=== PATIENT | female | born 1995 | race Caucasian/White ===

== ENCOUNTER → 2019-06-03 | Outpatient (CLI) | payer OTHER | END | disposition home or self-care (01) | LOC: LABWHC1 11:08 | PROVIDERS: ATTEND Otolaryngology | DX: J30.89 Other allergic rhinitis (principal) | CPT/HCPCS: 36415; 86001 ==

== ENCOUNTER → 2019-06-08 | Outpatient (CLI) | payer OTHER | END | disposition home or self-care (01) | LOC: NEUROMAIN 08:41 | PROVIDERS: ATTEND Otolaryngology | DX: H81.8X3 Other disorders of vestibular function, bilateral (principal) | CPT/HCPCS: 92537; 92540 ==

== ENCOUNTER 2019-06-18 22:14 | Emergency (ER) | payer OTHER ==
[2019-06-18 22:20] VITALS: RESP 18; TEMP 98.3
[2019-06-18 23:15] VITALS: BP 123/93; PULSE 87
[2019-06-18 23:15] LABS: Appearance,Urine Clear (Clear); Bilirubin,Urine Negative (Negative); Blood,Urine Negative (Negative); Color,Urine Light Yellow; Glucose,Urine (UA) Negative (Negative); Ketones,Urine Negative (Negative); Leukocyte Esterase,Urine Negative (Negative); Nitrite,Urine Negative (Negative); PH, Urine 7.5 (5.0-8.0); Protein,Urine Negative (Negative); Specific Gravity,Urine 1.005 (1.001-1.035); Urobilinogen,Urine <2.0 mg/dL (<2.0)
--- NOTE | 2019-06-18 23:30 | XR ---
EXAMINATION TYPE: XR chest 2V DATE OF EXAM: 06/18/2019 COMPARISON: NONE HISTORY: Headache TECHNIQUE: Frontal and lateral views of the chest are obtained. FINDINGS: Heart and mediastinum are normal. Lungs are clear. Diaphragm is normal. Bony thorax appear s normal. IMPRESSION: Normal chest.
--- NOTE | 2019-06-18 23:31 | CT ---
EXAMINATION TYPE: CT brain wo con DATE OF EXAM: 06/18/2019 COMPARISON: None HISTORY: 1233.40 CT DLP: dizziness, sinus pressure mGycm. Automated Exposure Control for Dose Reduction was Utilized. TECHNIQUE: CT scan of the head is performed without contrast. FINDINGS: Ventricles and sulci appear normal. There is no mass effect nor midline shift. There is no sign of intracranial hemorrhage. Calvarium is intact. IMPRESSION: Normal head CT scan.
--- NOTE | 2019-06-18 23:53 | ED ---
General Adult HPI - General Chief complaint: Upper Respiratory Infection Stated complaint: Headache,dizziness Time Seen by Provider: 06/18/19 22:23 Source: patient, RN notes reviewed, old records reviewed Mode of arrival: ambulatory Limitations: no limitations - History of Present Illness Initial comments: 24-year-old female patient with no pertinent past history presents to ED with multiple complaints. Patient chief complaint is approximately 6 months of waxing and waning headaches. Patient reports that they are located in the frontal as well as apex of her skull. Reports that she does occasionally wake up with headaches in the morning. Patient was that she has had episodes of nausea and vomiting. Denies this being on a daily basis. Patient has secondary complaint of recurrent sinus congestion and pressure. Reports that she is following with ENT for this. There are complaint the patient reports that she has had approximately 5 days of waxing and waning cough. Denies any other complaints at this time. Systemic: Pt denies fatigue, fever/chills, rash. Pt denies weakness, night sweats, weight loss. Neuro: Pt denies visual disturbances, syncope or pre-syncope. HEENT: Pt denies ocular discharge or irritation, otalgia, rhinorrhea, pharyngitis or notable lymphadenopathy. Cardiopulmonary: Pt denies chest pain, SOB, heart palpitations, dyspnea on exertion. Abdominal/GI: Pt denies abdominal pain, n/v/d. : Pt denies dysuria, burning w/ urination, frequency/urgency. Denies new onset urinary or bowel incontinence. MSK: Pt denies myalgia, loss of strength or function in extremities. Neuro: Pt denies new onset weakness, paresthesias. - Related Data Allergies Allergy/AdvReac Type Severity Reaction Status Date / Time ketorolac [From Toradol] Allergy Unknown Verified 06/18/19 22:21 Review of Systems ROS Statement: Those systems with pertinent positive or pertinent negative responses have been documented in the HPI. ROS Other: All systems not noted in ROS Statement are negative. Past Medical History Past Medical History: No Reported History Additional Past Medical History / Comment(s): allergies, dizziness History of Any Multi-Drug Resistant Organisms: None Reported Past Surgical History: No Surgical Hx Reported Past Psychological History: No Psychological Hx Reported Smoking Status: Never smoker Past Alcohol Use History: Occasional Past Drug Use History: None Reported General Exam - General Exam Comments Initial Comments: Constitutional: NAD, AOX3, Pt has pleasant affect. HEENT: NC/AT, trachea midline, neck supple, no lymphadenopathy. Posterior pharynx non erythematous, without exudates. External ears appear normal, without discharge. Mucous membranes moist. Eyes PERRLA, EOM intact. There is no scleral icterus. No pallor noted. Cardiopulmonary: RRR, no murmurs, rubs or gallops, no JVD noted. Lungs CTAB in anterior and posterior melissa. No peripheral edema. Abdominal exam: Abdomen soft and non-distended. Abdomen non-tender to palpation in all 4 quadrants. Bowel sounds active in LLQ. No hepatosplenomegaly. No ecchymosis Neuro: CN II-XII intact. No nuchal rigidity. No raccon eyes, no mercado sign, no hemotympanum. No cervical spinal tenderness. MSK: No posterior calf tenderness bilaterally, homans sign negative bilaterally. Posterior tibialis and radial pulse +2 bilaterally. Sensation intact in upper and lower extremities. Full active ROM in upper and lower extremities, 5/5 stregnth. Limitations: no limitations Course Vital Signs 06/18/19 06/18/19 06/18/19 22:17 22:39 23:08 Temperature 98.3 F Pulse Rate 89 87 Respiratory 18 18 18 Rate Blood Pressure 124/72 123/93 O2 Sat by Pulse 99 98 Oximetry Medical Decision Making - Medical Decision Making 24-year-old female patient with no pertinent past history presents to ED with multiple complaints. Patient chief complaint is approximately 6 months of waxing and waning headaches. Patient reports that they are located in the fr ontal as well as apex of her skull. Reports that she does occasionally wake up with headaches in the morning. Patient was that she has had episodes of nausea and vomiting. Denies this being on a daily basis. Patient has secondary complaint of recurrent sinus congestion and pressure. Reports that she is following with ENT for this. There are complaint the patient reports that she has had approximately 5 days of waxing and waning cough. Denies any other complaints at this time. Patient vital signs stable, afebrile. Physical examacute pathology. Neurologic exam within normal limits. CT brain densely acute pathology. Chest do not display acute pathology. Patient discharged with follow-up with ENT for further evaluation. Case discussed with Dr. Mijares. - Lab Data Lab Results 06/18/19 06/18/19 Range/Units 23:00 23:00 Urine Color Light Yellow Urine Appearance Clear (Clear) Urine pH 7.5 (5.0-8.0) Ur Specific [place] 1.005 (1.001-1.035) Urine Protein Negative (Negative) Urine Glucose (UA) Negative (Negative) Urine Ketones Negative (Negative) Urine Blood Negative (Negative) Urine Nitrite Negative (Negative) Urine Bilirubin Negative (Negative) Urine Urobilinogen <2.0 (<2.0) mg/dL Ur Leukocyte Esterase Negative (Negative) Urine HCG, Qual Not Detected (Not Detectd) Disposition Clinical Impression: Headache, Cough Disposition: HOME SELF-CARE Condition: Stable Instructions (If sedation given, give patient instructions): Acute Headache (ED) Additional Instructions: Patient to adhere to previously discussed treatment plan and will take medication(s) as directed. Patient to follow up with PCP in 1-2 days. Patient to return to ED if symptoms do not improve. Follow-up with ENT tomorrow. Return to ER if condition worsens. Is patient prescribed a controlled substance at d/c from ED?: No Referrals: None,Stated [Primary Care Provider] - 1-2 days
--- NOTE | 2019-06-18 23:56 | ED ---
Medical Decision Making - Lab Data Lab Results 06/18/19 06/18/19 Range/Units 23:00 23:00 Urine Color Light Yellow Urine Appearance Clear (Clear) Urine pH 7.5 (5.0-8.0) Ur Specific [place] 1.005 (1.001-1.035) Urine Protein Negative (Negative) Urine Glucose (UA) Negative (Negative) Urine Ketones Negative (Negative) Urine Blood Negative (Negative) Urine Nitrite Negative (Negative) Urine Bilirubin Negative (Negative) Urine Urobilinogen <2.0 (<2.0) mg/dL Ur Leukocyte Esterase Negative (Negative) Urine HCG, Qual Not Detected (Not Detectd) Disposition Clinical Impression: Headache, Cough Disposition: HOME SELF-CARE Condition: Stable Instructions (If sedation given, give patient instructions): Acute Headache (ED) Additional Instructions: Patient to adhere to previously discussed treatment plan and will take medication(s) as directed. Patient to follow up with PCP in 1-2 days. Patient to return to ED if symptoms do not improve. Follow-up with ENT tomorrow. Return to ER if condition worsens. Is patient prescribed a controlled substance at d/c from ED?: No Referrals: None,Stated [Primary Care Provider] - 1-2 days [facility] [NON[facility]FF] - 1-2 days
== END 2019-06-19 00:07 | disposition home or self-care (01) ==
LOC: EC 22:14
DX: R51 Headache (principal); R05 Cough; R11.2 Nausea with vomiting, unspecified; R09.81 Nasal congestion; R42 Dizziness and giddiness; Z88.6 Allergy status to analgesic agent
CPT/HCPCS: 70450; 71046; 81003; 81025; 99285

== ENCOUNTER → 2019-07-08 | Outpatient (CLI) | payer OTHER ==
--- NOTE | 2019-07-09 10:49 | CT ---
EXAMINATION TYPE: CT sinus wo con DATE OF EXAM: 07/08/2019 COMPARISON: None HISTORY: Chronic sinusitis, vertigo, headaches. CT DLP: 448.[address] of the paranasal sinuses was performed in the axial and coronal planes. Bone and soft tissue settings are submitted. The paranasal sinuses demonstrate normal aeration and development. The paranasal sinuses are free of mucosal thickening or air fluid level. The osteal meatal units are patent bilaterally. The nasal septum is midline. No bony destructive changes are seen within the field of view. IMPRESSION: Normal unenhanced CT of the paranasal sinuses.
== END | disposition home or self-care (01) ==
LOC: RADCTMAIN 15:21
PROVIDERS: ATTEND Otolaryngology
DX: J32.9 Chronic sinusitis, unspecified (principal)
CPT/HCPCS: 70486

== ENCOUNTER 2019-08-02 21:21 | Emergency (ER) | payer OTHER ==
[2019-08-02 21:38] LABS: Appearance,Urine Clear (Clear); Bilirubin,Urine Negative (Negative); Blood,Urine Negative (Negative); Color,Urine Light Yellow; Glucose,Urine (UA) Negative (Negative); Ketones,Urine Negative (Negative); Leukocyte Esterase,Urine Negative (Negative); Nitrite,Urine Negative (Negative); PH, Urine 7.5 (5.0-8.0); Protein,Urine Negative (Negative); Specific Gravity,Urine 1.011 (1.001-1.035); Urobilinogen,Urine <2.0 mg/dL (<2.0)
[2019-08-02] MEDS ORDERED: diphenhydrAMINE 50 MG/ML 1 ML VIAL IVP STA (22:06)
[2019-08-02] MEDS ORDERED: SODIUM CHLORIDE 0.9% 1,000 ML IV ONE (22:06)
[2019-08-02] MEDS ORDERED: METOCLOPRAMIDE 5 MG/ML 2 ML VIAL IVP STA (22:06)
[2019-08-02] MEDS ORDERED: DEXAMETHASONE SOD PHOSPHATE 10 MG/ML 1 ML VIAL IV STA (22:06)
[2019-08-02 22:42] LABS: Basophils % (A) 0 %; Eosinophils # (A) 0.1 k/uL (0-0.7); Eosinophils % (A) 1 %; HCT 42.4 % (34.0-46.0); HGB 14.4 gm/dL (11.4-16.0); Lymphocytes # (A) 1.3 k/uL (1.0-4.8); Lymphocytes % (A) 9 %; MCHC 33.8 g/dL (31.0-37.0); MCV 94.7 fL (80.0-100.0); Mean Platelet Volume 7.4; Monocytes # (A) 0.5 k/uL (0-1.0); Monocytes % (A) 4 %; Neutrophils # (A) 11.8 k/uL (1.3-7.7); Neutrophils % (A) 85 %; Platelet Count 253 k/uL (150-450); RBC 4.48 m/uL (3.80-5.40); RDW 11.5 % (11.5-15.5); WBC 13.8 k/uL (3.8-10.6)
[2019-08-02 22:45] LABS: ALT 23 U/L (9-52); AST 21 U/L (14-36); African American GFR (CKD) >90 (>60 ml/min/1.73 sqM); Alkaline Phosphatase 59 U/L (38-126); Anion Gap 10 mmol/L; Blood Urea Nitrogen 20 mg/dL (7-17); Calcium 9.5 mg/dL (8.4-10.2); Carbon Dioxide 24 mmol/L (22-30); Chloride 106 mmol/L (98-107); Glucose 126 mg/dL (74-99); Magnesium 2.1 mg/dL (1.6-2.3); Non-African American GFR(CKD) >90 (>60 ml/min/1.73 sqM); Potassium 3.8 mmol/L (3.5-5.1); Sodium 140 mmol/L (137-145); Total Bilirubin 0.4 mg/dL (0.2-1.3)
--- NOTE | 2019-08-02 23:43 | ED ---
General Adult HPI - General Chief complaint: Nausea/Vomiting/Diarrhea Stated complaint: Vomiting, shakiness Time Seen by Provider: 08/02/19 21:54 Source: patient Mode of arrival: ambulatory Limitations: no limitations - History of Present Illness Initial comments: 24-year-old female patient presents to the emergency department today for evaluation of headache. Patient states she's been having increasing frequency of headaches over the last several months. States this headache has been present for the last 5 days. States that times it will be less severe and at times more severe. States that generally he is always on the right side around her right eye her in her forehead. She denies any blurred or double vision with this. States today she is having some nausea but she generally does not have this symptom. States she does have some light sensitivity. Patient states that she has been taking Tylenol. States today she tried Excedrin Migraine. States that she did develop some shakiness and nausea after taking the medication. Denies any chance of . Denies any recent head injury. States she has seen her primary care physician who recommended hot packs and magnesium tablets. Patient denies any recent rash, fever, chills, shortness breath, chest pain, abdominal pain, diarrhea, constipation, back pain, numbness, tingling, dizziness, weakness, hematuria, dysuria, urinary urgency, urinary frequency, or any other complaints. - Related Data Allergies Allergy/AdvReac Type Severity Reaction Status Date / Time ketorolac [From Toradol] Allergy Unknown Verified 08/02/19 21:24 Review of Systems ROS Statement: Those systems with pertinent positive or pertinent negative responses have been documented in the HPI. ROS Other: All systems not noted in ROS Statement are negative. Past Medical History Past Medical History: No Reported History Additional Past Medical History / Comment(s): allergies, dizziness History of Any Multi-Drug Resistant Organisms: None Reported Past Surgical History: No Surgical Hx Reported Past Psychological History: No Psychological Hx Reported Smoking Status: Never smoker Past Alcohol Use History: Occasional Past Drug Use History: None Reported General Exam Limitations: no limitations General appearance: alert, in no apparent distress, other (This is a well- developed, well-nourished adult female patient in no acute distress. Vital signs upon presentation are temperature 98.1F, pulse 98, respirations 18, blood pressure 150/77, pulse ox 99% on room air.) Eye exam: Present: normal appearance, PERRL, EOMI. Absent: scleral icterus, conjunctival injection, periorbital swelling ENT exam: Present: normal exam, normal oropharynx, mucous membranes moist Respiratory exam: Present: normal lung sounds bilaterally. Absent: respiratory distress, wheezes, rales, rhonchi, stridor Cardiovascular Exam: Present: regular rate, normal rhythm, normal heart sounds. Absent: systolic murmur, diastolic murmur, rubs, gallop, clicks GI/Abdominal exam: Present: soft, normal bowel sounds. Absent: distended, tenderness, guarding, rebound, rigid Neurological exam: Present: alert, oriented X3, CN II-XII intact Expanded Speech: Present: fluid speech Cranial nerves: EOM's Intact: Normal, Nystagmus: Normal Cerebellar function: Finger to Nose: Normal Motor strength exam: RUE: 5, LUE: 5, RLE: 5, LLE: 5 Psychiatric exam: Present: normal affect, normal mood Skin exam: Present: warm, dry, intact, normal color. Absent: rash Course Vital Signs 08/02/19 08/03/19 21:22 00:11 Temperature 98.1 F 97.8 F Pulse Rate 98 52 L Respiratory 18 16 Rate Blood Pressure 150/77 102/59 O2 Sat by Pulse 99 99 Oximetry Medical Decision Making - Medical Decision Making 24-year-old female patient presents to the emergency department today for evaluation of headache, shaking, and nausea. Physical examination is unremarkable. She is neurologically intact with no focal deficits. Labs reviewed and are unremarkable. Patient was given some IV medications for headache, she does report improvement of symptoms. She'll be discharged to follow-up with her primary care physician, discuss referral to neurology, she is instructed to keep a headache diary. Return parameters were discussed in detail. She verbalizes understanding and agrees with this plan. - Lab Data Result diagrams: 08/02/19 22:25 08/02/19 22:25 Lab Results 08/02/19 08/02/19 08/02/19 Range/Units 21:26 21:26 22:25 WBC 13.8 H (3.8-10.6) k/uL RBC 4.48 (3.80-5.40) m/uL Hgb 14.4 (11.4-16.0) gm/dL Hct 42.4 (34.0-46.0) % MCV 94.7 (80.0-100.0) fL MCH 32.0 (25.0-35.0) pg MCHC 33.8 (31.0-37.0) g/dL RDW 11.5 (11.5-15.5) % Plt Count 253 (150-450) k/uL Neutrophils % 85 % Lymphocytes % 9 % Monocytes % 4 % Eosinophils % 1 % Basophils % 0 % Neutrophils # 11.8 H (1.3-7.7) k/uL Lymphocytes # 1.3 (1.0-4.8) k/uL Monocytes # 0.5 (0-1.0) k/uL Eosinophils # 0.1 (0-0.7) k/uL Basophils # 0.0 (0-0.2) k/uL Sodium (137-145) mmol/L Potassium (3.5-5.1) mmol/L Chloride (98-107) mmol/L Carbon Dioxide (22-30) mmol/L Anion Gap mmol/L BUN (7-17) mg/dL Creatinine (0.52-1.04) mg/dL Est GFR (CKD-EPI)AfAm (>60 ml/min/1.73 sqM) Est GFR (CKD-EPI)NonAf (>60 ml/min/1.73 sqM) Glucose (74-99) mg/dL Calcium (8.4-10.2) mg/dL Magnesium (1.6-2.3) mg/dL Total Bilirubin (0.2-1.3) mg/dL AST (14-36) U/L ALT (9-52) U/L Alkaline Phosphatase (38-126) U/L Total Protein (6.3-8.2) g/dL Albumin (3.5-5.0) g/dL Urine Color Light Yellow Urine Appearance Clear (Clear) Urine pH 7.5 (5.0-8.0) Ur Specific [place] 1.011 (1.001-1.035) Urine Protein Negative (Negative) Urine Glucose (UA) Negative (Negative) Urine Ketones Negative (Negative) Urine Blood Negative (Negative) Urine Nitrite Negative (Negative) Urine Bilirubin Negative (Negative) Urine Urobilinogen <2.0 (<2.0) mg/dL Ur Leukocyte Esterase Negative (Negative) Urine HCG, Qual Not Detected (Not Detectd) 08/02/19 Range/Units 22:25 WBC (3.8-10.6) k/uL RBC (3.80-5.40) m/uL Hgb (11.4-16.0) gm/dL Hct (34.0-46.0) % MCV (80.0-100.0) fL MCH (25.0-35.0) pg MCHC (31.0-37.0) g/dL RDW (11.5-15.5) % Plt Count (150-450) k/uL Neutrophils % % Lymphocytes % % Monocytes % % Eosinophils % % Basophils % % Neutrophils # (1.3-7.7) k/uL Lymphocytes # (1.0-4.8) k/uL Monocytes # (0-1.0) k/uL Eosinophils # (0-0.7) k/uL Basophils # (0-0.2) k/uL Sodium 140 (137-145) mmol/L Potassium 3.8 (3.5-5.1) mmol/L Chloride 106 (98-107) mmol/L Carbon Dioxide 24 (22-30) mmol/L Anion Gap 10 mmol/L BUN 20 H (7-17) mg/dL Creatinine 0.87 (0.52-1.04) mg/dL Est GFR (CKD-EPI)AfAm >90 (>60 ml/min/1.73 sqM) Est GFR (CKD-EPI)NonAf >90 (>60 ml/min/1.73 sqM) Glucose 126 H (74-99) mg/dL Calcium 9.5 (8.4-10.2) mg/dL Magnesium 2.1 (1.6-2.3) mg/dL Total Bilirubin 0.4 (0.2-1.3) mg/dL AST 21 (14-36) U/L ALT 23 (9-52) U/L Alkaline Phosphatase 59 (38-126) U/L Total Protein 8.0 (6.3-8.2) g/dL Albumin 5.0 (3.5-5.0) g/dL Urine Color Urine Appearance (Clear) Urine pH (5.0-8.0) Ur Specific [place] (1.001-1.035) Urine Protein (Negative) Urine Glucose (UA) (Negative) Urine Ketones (Negative) Urine Blood (Negative) Urine Nitrite (Negative) Urine Bilirubin (Negative) Urine Urobilinogen (<2.0) mg/dL Ur Leukocyte Esterase (Negative) Urine HCG, Qual (Not Detectd) Disposition Clinical Impression: Headache Disposition: HOME SELF-CARE Condition: Good Instructions (If sedation given, give patient instructions): Migraine Headache (ED) Additional Instructions: Increase fluids. Rest. Follow-up through primary care physician for recheck in 1-2 days. Follow-up with neurology for further evaluation as soon as possible. Return to the emergency department immediately for any new, worsening, or concerning symptoms. Is patient prescribed a controlled substance at d/c from ED?: No Referrals: Aníbal Espinoza MD [STAFF PHYSICIAN] - 1-2 days Time of Disposition: 23:43
[2019-08-03 00:12] VITALS: BP 102/59; PULSE 52; RESP 16; TEMP 97.8
== END 2019-08-03 00:12 | disposition home or self-care (01) ==
LOC: EC 21:21
DX: R51 Headache (principal); R11.2 Nausea with vomiting, unspecified; R25.9 Unspecified abnormal involuntary movements; Z88.6 Allergy status to analgesic agent
CPT/HCPCS: 36415; 80053; 83735; 85025; 81003; 81025; 99284; 96374; 96375 ×2; 96361; J1200; J1100; J2765

== ENCOUNTER 2020-01-04 13:42 | Emergency (ER) | payer OTHER ==
--- NOTE | 2020-01-04 15:44 | USB ---
EXAMINATION TYPE: US breast limited LT DATE OF EXAM: 01/04/2020 COMPARISON: NONE CLINICAL HISTORY: left breast lump, r/o abscess. ER patient, palpable lump 1:00 A x2 weeks Complex cystic cluster visualized at the area of the patient's palpable lump, 1:00 A, measuring 14 x 7 x 10 mm. There is also a cystic appearing area 1:00 A measuring 6 x 3 x 6 mm Findings appear more complex cystic and abscess. Correlate with the clinical symptoms. Impression: 1. Probably benign findings. 2. BI-RADS 3 Recommendations: 1. Follow-up ultrasound in 1-3 months. 2. Patient should continue monthly self breast exam. 3. Clinical management of the palpable abnormality. If there should be a change, repeat imaging can b e performed at an earlier time.
--- NOTE | 2020-01-04 16:37 | ED ---
General Adult HPI - General Chief complaint: Extremity Problem,Nontraumatic Stated complaint: Breast tenderness Time Seen by Provider: 01/04/20 13:45 Source: patient Mode of arrival: ambulatory Limitations: no limitations - History of Present Illness Initial comments: The patient is a 24-year-old female presents emergency room with reported left breast pain and palpable lump. The patient reports that for the past 3 days she has had tenderness to her left breast. She admits to palpable mass at the 1 o'clock position. No history of similar in the past. Denies concern for . Menstrual cycle is planning to start this week. No fevers or chills. Denies nausea or vomiting. No trauma to the area. Denies any nipple discharge. Does have a family history of breast cancer. There are no other alleviating, precipitatng or modifying factors - Related Data Home Medications Medication Instructions Recorded Confirmed valACYclovir HCL [Valacyclovir] 1,000 mg PO BID 01/04/20 01/04/20 Previous Rx's Medication Instructions Recorded Cephalexin [Keflex] 500 mg PO Q6HR 7 Days #28 cap 01/05/20 Allergies Allergy/AdvReac Type Severity Reaction Status Date / Time ketorolac [From Toradol] Allergy Unknown Verified 01/05/20 17:03 Review of Systems ROS Statement: Those systems with pertinent positive or pertinent negative responses have been documented in the HPI. ROS Other: All systems not noted in ROS Statement are negative. Past Medical History Past Medical History: No Reported History Additional Past Medical History / Comment(s): allergies, dizziness History of Any Multi-Drug Resistant Organisms: None Reported Past Surgical History: No Surgical Hx Reported Past Psychological History: No Psychological Hx Reported Smoking Status: Never smoker Past Alcohol Use History: Occasional Past Drug Use History: None Reported General Exam Limitations: no limitations General appearance: alert, in no apparent distress Respiratory exam: Present: normal lung sounds bilaterally, chest wall tenderness (left breast has palpable mass at the 1:00 position. No overlying redness or skin dimpling. ) Cardiovascular Exam: Present: regular rate, normal rhythm, normal heart sounds. Absent: systolic murmur, diastolic murmur, rubs, gallop, clicks GI/Abdominal exam: Present: soft Back exam: Present: normal inspection Neurological exam: Present: alert, oriented X3, CN II-XII intact Course Vital Signs 01/04/20 01/04/20 13:43 16:49 Temperature 98.2 F 98.1 F Pulse Rate 93 80 Respiratory 18 20 Rate Blood Pressure 122/76 123/56 O2 Sat by Pulse 99 99 Oximetry Medical Decision Making - Medical Decision Making Upon arrival the patient is placed in room 10. A thorough history and physical exam was performed. The patient does provide a urine sample which on straights and negative hCG. Ultrasound was performed which demonstrates a complex cystic mass likely benign. BI-RADS Grading 3. Recommend ultrasound in 1-3 months. The patient has no overlying cellulitic changes. At this time I do recommend that the patient follow up with her primary care physician for repeat ultrasound in one month. I also provided her with INFORMATION for Dr. Macario office. Return to the emergency room for any new worsening symptoms per patient was in agreement with discharge home in stable condition - Lab Data Lab Results 01/04/20 Range/Units Unknown Urine HCG, Qual Not Detected (Not Detectd) Disposition Clinical Impression: Breast cyst Disposition: HOME SELF-CARE Condition: Stable Instructions (If sedation given, give patient instructions): Fibrocystic Breast Changes (ED) Additional Instructions: Please follow-up with your primary care doctor. You need a repeat ultrasound in 1-3 months. Return to the emergency room for any worsening symptoms Is patient prescribed a controlled substance at d/c from ED?: No Referrals: None,Stated [Primary Care Provider] - 1-2 days Claudia Macario MD [STAFF PHYSICIAN] - 1-2 days Time of Disposition: 16:37
[2020-01-04 16:52] VITALS: BP 123/56; PULSE 80; RESP 20; TEMP 98.1
== END 2020-01-04 16:49 | disposition home or self-care (01) ==
LOC: EC 13:42
DX: N60.02 Solitary cyst of left breast (principal); Z88.6 Allergy status to analgesic agent
CPT/HCPCS: 81025; 99284

== ENCOUNTER 2020-01-05 16:58 | Emergency (ER) | payer OTHER ==
[2020-01-05 17:03] VITALS: RESP 18
--- NOTE | 2020-01-05 18:09 | ED ---
General Adult HPI - General Chief complaint: Extremity Problem,Nontraumatic Stated complaint: Breast tenderness-revisit Time Seen by Provider: 01/05/20 17:16 Source: patient Mode of arrival: ambulatory Limitations: no limitations - History of Present Illness Initial comments: Patient is a 24-year-old female presenting to the emergency department for a r echeck of left breast tenderness and swelling. Patient states she was in the ER yesterday for same complaint and did receive an ultrasound of the breast which reveals a cyst. Patient states she came back today because she feels like the swelling, pain, redness is worse. She denies any previous trauma to the area. She is not currently breast-feeding. She did have a video conference with her old primary care physician that lives in [place] and they recommended her coming back to the ER for possible antibiotics. Patient denies recent fever, chills, nausea, vomiting. She states she still been eating and drinking as normal. She has no other complaints at this time. Upon arrival to the ER, her vital signs are stable, afebrile. - Related Data Home Medications Medication Instructions Recorded Confirmed valACYclovir HCL [Valacyclovir] 1,000 mg PO BID 01/04/20 01/04/20 Previous Rx's Medication Instructions Recorded Cephalexin [Keflex] 500 mg PO Q6HR 7 Days #28 cap 01/05/20 Allergies Allergy/AdvReac Type Severity Reaction Status Date / Time ketorolac [From Toradol] Allergy Unknown Verified 01/05/20 17:03 Review of Systems ROS Statement: Those systems with pertinent positive or pertinent negative responses have been documented in the HPI. ROS Other: All systems not noted in ROS Statement are negative. Past Medical History Past Medical History: No Reported History Additional Past Medical History / Comment(s): allergies, dizziness History of Any Multi-Drug Resistant Organisms: None Reported Past Surgical History: No Surgical Hx Reported Past Psychological History: No Psychological Hx Reported Smoking Status: Never smoker Past Alcohol Use History: Occasional Past Drug Use History: None Reported General Exam - General Exam Comments Initial Comments: GENERAL: Well-appearing, well-nourished and in no acute distress. HEAD: Atraumatic, normocephalic. EYES: Pupils equal round and reactive to light, extraocular movements intact, sclera anicteric, conjunctiva are normal. ENT: TMs normal, nares patent, oropharynx clear without exudates. Moist mucous membranes. NECK: Normal range of motion, supple without lymphadenopathy or JVD. LUNGS: Breath sounds clear to auscultation bilaterally and equal. No wheezes rales or rhonchi. HEART: Regular rate and rhythm without murmurs, rubs or gallops. ABDOMEN: Soft, nontender, normoactive bowel sounds. No guarding, no rebound. No masses appreciated. : Deferred EXTREMITIES: Normal range of motion, no pitting or edema. No clubbing or cyanosis. NEUROLOGICAL: Normal speech, normal gait. PSYCH: Normal mood, normal affect. SKIN: Warm, Dry, normal turgor. Patient has pain along with erythema on the lateral aspect of her left breast. There is some mild swelling to the area. No pain with palpation in the left axilla Limitations: no limitations Course Vital Signs 01/05/20 01/05/20 17:01 18:31 Temperature 98.1 F 97.8 F Pulse Rate 85 77 Respiratory 18 18 Rate Blood Pressure 114/72 101/69 O2 Sat by Pulse 100 98 Oximetry Medical Decision Making - Medical Decision Making Patient is a 24-year-old female here for recheck of pain and swelling in her left breast. Her vitals are stable. Ultrasound of the left breast was performed yesterday and that was reviewed. I discussed with patient that we will start her on antibiotics for possible cellulitis of her left breast. Patient will be started on Keflex. I did offer Rocephin in the ER however patient declined. Patient will follow-up with [facility]. She is in agreement with this plan of care and is stable for discharge. Return parameters were discussed with the patient she verbalized understanding. Case discussed with Dr. Stahl. Disposition Clinical Impression: Breast cyst, Cellulitis of left breast Disposition: HOME SELF-CARE Condition: Stable Instructions (If sedation given, give patient instructions): Cellulitis (ED) Additional Instructions: Please return to the Emergency Department if symptoms worsen or any other concerns. Take antibiotic as prescribed. Follow up with [facility] as discussed. Prescriptions: Cephalexin [Keflex] 500 mg PO Q6HR 7 Days #28 cap Is patient prescribed a controlled substance at d/c from ED?: No Referrals: None,Stated [Primary Care Provider] - 1-2 days
[2020-01-05 18:31] VITALS: BP 101/69; PULSE 77; TEMP 97.8
== END 2020-01-05 18:31 | disposition home or self-care (01) ==
LOC: EC 16:58
DX: N61.0 Mastitis without abscess (principal); N60.02 Solitary cyst of left breast; Z79.899 Other long term (current) drug therapy; Z88.6 Allergy status to analgesic agent
CPT/HCPCS: 99283